=== PATIENT | female | born 1945 | race Caucasian/White ===

== ENCOUNTER 2017-02-26 23:43 | Emergency (ER) | payer MEDICARE, OTHER, MEDICAID ==
[2017-02-27] MEDS ORDERED: Ondansetron 4 MG/2 ML SDV IVPUSH ONE (00:40)
[2017-02-27] MEDS ORDERED: Sodium Chloride 0.9% 1,000 ML IV SCH (00:45)
[2017-02-27] MEDS ORDERED: Ondansetron 4 MG Tab.DIS PO ONE (02:39)
[2017-02-27 03:02] VITALS: BP 155/80
--- NOTE | 2017-03-04 10:51 | ER ---
DATE SEEN: 02/26/2017 The patient was seen at 2356 hours. CHIEF COMPLAINT: Abdominal pain with nausea and vomiting. HISTORY OF PRESENT ILLNESS: This pleasant 71-year-old woman comes in with her son because she had onset of nausea and vomiting this evening and it has been present since 2230 hours. She had eaten supper, had chips, salsa, and cereal. She still has mild cramping, nausea, and had associated diaphoresis. Denies chest pain, shortness of breath, cough, leg pain, arm pain, jaw pain, neck pain, lightheadedness, near syncope, syncope, palpitations, or fever. Her abdominal pain is 5/10 in intensity. 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 Had pneumonia in 2016. Had partial hysterectomy, a bunion surgery, cholecystectomy, and big toe surgery. She weighs approximately 200 pounds. MEDICATIONS: 1. Patanol for glaucoma. 2. Lisinopril for hypertension. 3. Nexium for GERD. 4. Citalopram for depression. ALLERGIES: Cefdinir, iodine, oral and IV dye contrast, ketorolac, and tromethamine. REVIEW OF SYSTEMS: Negative except for noted above. PHYSICAL EXAMINATION: VITAL SIGNS: Blood pressure 162/77, heart rate 80, respirations 16, oxygen saturation 100%, weight 90.71 kg, and BMI 31.3 kg/m2. GENERAL: Alert woman. She is missing multiple lower teeth, incisors and cuspids. Pleasant. HEENT: PERRLA intact without abnormality. Mucosa slightly decreased in moistness, has dry mouth. NECK: Supple. No bruits in the neck. No thyromegaly. LUNGS: Clear to auscultation without rales, rhonchi, or wheezes. HEART: S1, S2. There is no irregularity of rhythm. ABDOMEN: Soft, mild voluntary guarding. No rebound. No scars noted. No tenderness. No CVA percussion tenderness. EXTREMITIES: Lower extremities without edema. Deep tendon reflexes hypoactive, upper and lower extremities. Cranial nerves 2 through 12 intact. Oriented x3. Strength intact. PSYCHIATRIC: The patient is alert, interactive, and appropriate. LABORATORY FINDINGS: White count 9600, PMNs 80, lymphocytes 10, hemoglobin 15.6, hematocrit is 47. Complete metabolic panel is negative except for a slight reactive glucose elevation of 143. AST 123, ALT 92, troponin 0.01. ASSESSMENT: 1. Gastroenteritis, probably food, staphylococcal mediated. 2. Possible norovirus because the patient is working with daycare. Norovirus is the most common virus to cause gastroenteritis. 3. Low probability of rotavirus, as rotavirus is being vaccinated for in the younger population. 4. Other viruses, adenovirus and Campylobacter as the etiology. PLAN: The patient received 1000 mL of normal saline flush and Zofran. She feels much better. Her symptoms abated. The patient dismissed. Gradually progressively increase her diet as tolerated, and noted that she may have loose stools and discomfort for several days before it resolves. Two tablets of Zofran sent home with her to help deal with nausea and vomiting in the next 6 hours. /[id number] RYAN/STEPHEN PARKINSON
== END 2017-02-27 02:55 | disposition home or self-care (01) ==
LOC: FB.ED 23:43
DX: K52.9 Noninfective gastroenteritis and colitis, unspecified (principal); A04.5 Campylobacter enteritis; B34.0 Adenovirus infection, unspecified; K21.9 Gastro-esophageal reflux disease without esophagitis; Z87.01 Personal history of pneumonia (recurrent); Z88.8 Allergy status to other drugs, medicaments and biological substances; Z91.041 Radiographic dye allergy status
CPT/HCPCS: 36415; 80053; 84484; 85025; 93005; 96360; 96361; 99284; A9270; J2405; J7040; 99283

== ENCOUNTER 2019-11-17 11:37 | Emergency (ER) | payer MEDICARE, OTHER, MEDICAID ==
[2019-11-17 11:49] VITALS: BP 168/81; PULSE 77
[2019-11-17] MEDS ORDERED: Sodium Chloride 0.9% 10 ML Syringe FLUSH PRN (11:56)
[2019-11-17] MEDS ORDERED: Ondansetron 4 MG/2 ML SDV IVPUSH ONE (11:57)
[2019-11-17] MEDS ORDERED: Sodium Chloride 0.9% 1,000 ML IV SCH (12:00)
[2019-11-17] MEDS ORDERED: Meclizine 25 MG Tab PO ONE (12:12)
[2019-11-17] MEDS ORDERED: LORazepam 2 MG/ML SDV IVPUSH ONE (12:12)
--- NOTE | 2019-11-17 14:24 | EDM.PDOC ---
ED HPI GENERAL MEDICAL PROBLEM - General Chief Complaint: Gastrointestinal Problem Stated Complaint: NAUSEA,VOMITING Time Seen by Provider: 11/17/19 11:55 Source of Information: Reports: Patient History Limitations: Reports: No Limitations - History of Present Illness INITIAL COMMENTS - FREE TEXT/NARRATIVE: Patient presented to the ED because of dizziness which she described as spinning sensation followed by N/V. She also c/o fullness on the right ear. There is no recent cough or cold ,fever or chills. She the same episode in the past. 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 (see below) Other Treatments PRODUCTION BROACHER: zofran - Related Data Allergies Allergy/AdvReac Type Severity Reaction Status Date / Time cefdinir [From Omnicef] Allergy Nausea and Verified 02/26/17 23:55 Vomiting Iodinated Contrast Media Allergy Rash Verified 02/26/17 23:55 ketorolac tromethamine Allergy Bleeding Verified 02/26/17 23:55 [From Toradol] Home Meds: Home Meds Citalopram [Citalopram Hbr] 1.5 tab PO DAILY 03/14/13 [History] Esomeprazole [NexIUM] 40 mg PO DAILY 03/14/13 [History] Lisinopril 20 mg PO DAILY 03/14/13 [History] Olopatadine HCl [Patanol] 1 drop Q48H 03/14/13 [History] Meclizine [Antivert] 25 mg PO Q6H PRN #15 tab.chew 11/17/19 [Rx] Metoprolol Succinate [Toprol XL] 25 mg PO DAILY 11/17/19 [History] Ondansetron [Zofran ODT] 4 mg PO Q4H PRN #5 tab.dis 11/17/19 [Rx] Past Medical History HEENT History: Reports: Impaired Vision Cardiovascular History: Reports: Aneurysm, Other (See Below) Other Cardiovascular History: 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: Reports: , Other (See Below) Other RIGGER THIRD History: partial hysterectomy - Past Surgical History GI Surgical History: Reports: Appendectomy, Cholecystectomy Other Musculoskeletal Surgeries/Procedures:: big toe bunion surgery with screws Social & Family History - Family History Family Medical History: Noncontributory - Tobacco Use Smoking Status *Q: Never Smoker - Caffeine Use Caffeine Use: Reports: Coffee, Soda, Tea ED ROS ENT - Review of Systems Review Of Systems: See Below Constitutional: Reports: No Symptoms HEENT: Reports: No Symptoms Respiratory: Reports: No Symptoms Cardiovascular: Reports: No Symptoms Endocrine: Reports: No Symptoms GI/Abdominal: Reports: No Symptoms, Nausea, Vomiting : Reports: No Symptoms Musculoskeletal: Reports: No Symptoms Skin: Reports: No Symptoms Neurological: Reports: Dizziness Psychiatric: Reports: No Symptoms ED EXAM, ENT - Physical Exam Exam: See Below Exam Limited By: Intoxication General Appearance: Alert, No Apparent Distress Eye Exam: Bilateral Eye: PERRL Ears: Normal External Exam, Normal Canal Nose: Normal Inspection, Normal Mucousa, No Blood Mouth/Throat: Normal Inspection, Normal Gums Head: Atraumatic, Normocephalic Neck: Normal Inspection, Supple, Non-Tender Respiratory/Chest: No Respiratory Distress, Lungs Clear, Normal Breath Sounds Cardiovascular: Normal Peripheral Pulses, Regular Rate, Rhythm, No Edema, No Gallop GI/Abdominal: Normal Bowel Sounds, Soft, Non-Tender Back: Normal Inspection, Full Range of Motion Extremities: Normal Inspection, Normal Range of Motion Neurological: Alert, Oriented, CN II-XII Intact, Normal Cognition, Normal Gait Course - Vital Signs Text/Narrative:: Labs/EKG was reviewed with patient and verbalized full understanding NS 1L bonus Ativan 1 mg IV Meclizine 25 mg po x1 Last Recorded V/S: Last Vital Signs Temp 36.3 C 11/17/19 11:47 Pulse 77 11/17/19 11:47 Resp 20 11/17/19 11:47 BP 168/81 H 11/17/19 11:47 Pulse Ox 98 11/17/19 11:47 - Orders/Labs/Meds Orders: Active Orders 24 hr Category Date Time Status EKG Documentation Completion [RC] ASDIRECTED Care 11/17/19 11:57 Active Chest 1V Frontal [CR] Stat Exams 11/17/19 12:14 Taken Sodium Chloride 0.9% [Normal Saline] 1,000 ml Med 11/17/19 12:00 Active IV ASDIRECTED Sodium Chloride 0.9% [Saline Flush] Med 11/17/19 11:56 Active 10 ml FLUSH ASDIRECTED PRN Saline Lock Insert [OM.PC] Routine Oth 11/17/19 11:56 Ordered EKG 12 Lead [EK] Routine Ther 11/17/19 11:56 Ordered Medication Orders Sodium Chloride (Normal Saline) 1,000 mls @ 999 mls/hr IV ASDIRECTED JAKE Last Admin: 11/17/19 12:41 Dose: 999 mls/hr Sodium Chloride (Saline Flush) 10 ml FLUSH ASDIRECTED PRN PRN Reason: Keep Vein Open Last Admin: 11/17/19 13:30 Dose: 10 ml Labs: Laboratory Tests 11/17/19 11/17/19 11/17/19 Range/Units 12:10 12:10 12:10 WBC 8.3 (4.5-12.0) X10-3/uL RBC 5.17 (3.23-5.20) x10(6)uL Hgb 15.4 (11.5-15.5) g/dL Hct 45.6 (30.0-51.3) % MCV 88.1 (80-96) fL MCH 29.8 (27.7-33.6) pg MCHC 33.8 (32.2-35.4) g/dL RDW 14.0 (11.5-15.5) % Plt Count 212 (125-369) X10(3)uL MPV 8.0 (7.4-10.4) fL Neut % (Auto) 53.1 (46-82) % Lymph % (Auto) 31.9 (13-37) % [place] % (Auto) 6.4 (4-12) % Eos % (Auto) 8 H (1.0-5.0) % Baso % (Auto) 1 (0-2) % Neut # (Auto) 4.3 (1.6-8.3) # Lymph # (Auto) 2.7 (0.6-5.0) # [place] # (Auto) 0.5 (0.0-1.3) # Eos # (Auto) 0.7 (0.0-0.8) # Baso # (Auto) 0.1 (0.0-0.2) # Sodium 141 (135-145) mmol/L Potassium 3.6 (3.5-5.3) mmol/L Chloride 104 (100-110) mmol/L Carbon Dioxide 24 (21-32) mmol/L BUN 12 (7-18) mg/dL Creatinine 0.9 (0.55-1.02) mg/dL Est Cr Clr Drug Dosing TNP Estimated GFR (MDRD) > 60 (>60) BUN/Creatinine Ratio 13.3 (9-20) Glucose 124 H (80-116) mg/dL Calcium 9.5 (8.6-10.2) mg/dL Total Bilirubin 0.8 (0.1-1.3) mg/dL AST 39 H (5-25) IU/L ALT 85 H (12-36) U/L Alkaline Phosphatase 122 H (56-112) IU/L Troponin I 5.1 (4.0-60.3) pg/mL Total Protein 7.4 (6.0-8.0) g/dL Albumin 4.0 (3.2-4.6) g/dL Globulin 3.4 g/dL Albumin/Globulin Ratio 1.2 Urine Color (YELLOW) Urine Appearance (CLEAR) Urine pH (5.0-6.5) Ur Specific [place] (1.010-1.025) Urine Protein (NEGATIVE) mg/dL Urine Glucose (UA) (NORMAL) mg/dL Urine Ketones (NEGATIVE) mg/dL Urine Occult Blood (NEGATIVE) Urine Nitrite (NEGATIVE) Urine Bilirubin (NEGATIVE) Urine Urobilinogen (NEGATIVE) mg/dL Ur Leukocyte Esterase (NEGATIVE) Urine RBC (0-5) Urine WBC (0-5) Ur Squamous Epith Cells (NS,R,O) Urine Bacteria (NS) 11/16/ Range/Units 13:40 WBC (4.5-12.0) X10-3/uL RBC (3.23-5.20) x10(6)uL Hgb (11.5-15.5) g/dL Hct (30.0-51.3) % MCV (80-96) fL MCH (27.7-33.6) pg MCHC (32.2-35.4) g/dL RDW (11.5-15.5) % Plt Count (125-369) X10(3)uL MPV (7.4-10.4) fL Neut % (Auto) (46-82) % Lymph % (Auto) (13-37) % [place] % (Auto) (4-12) % Eos % (Auto) (1.0-5.0) % Baso % (Auto) (0-2) % Neut # (Auto) (1.6-8.3) # Lymph # (Auto) (0.6-5.0) # [place] # (Auto) (0.0-1.3) # Eos # (Auto) (0.0-0.8) # Baso # (Auto) (0.0-0.2) # Sodium (135-145) mmol/L Potassium (3.5-5.3) mmol/L Chloride (100-110) mmol/L Carbon Dioxide (21-32) mmol/L BUN (7-18) mg/dL Creatinine (0.55-1.02) mg/dL Est Cr Clr Drug Dosing Estimated GFR (MDRD) (>60) BUN/Creatinine Ratio (9-20) Glucose (80-116) mg/dL Calcium (8.6-10.2) mg/dL Total Bilirubin (0.1-1.3) mg/dL AST (5-25) IU/L ALT (12-36) U/L Alkaline Phosphatase (56-112) IU/L Troponin I (4.0-60.3) pg/mL Total Protein (6.0-8.0) g/dL Albumin (3.2-4.6) g/dL Globulin g/dL Albumin/Globulin Ratio Urine Color Yellow (YELLOW) Urine Appearance Clear (CLEAR) Urine pH 7.0 H (5.0-6.5) Ur Specific [place] 1.010 (1.010-1.025) Urine Protein Negative (NEGATIVE) mg/dL Urine Glucose (UA) Normal (NORMAL) mg/dL Urine Ketones Negative (NEGATIVE) mg/dL Urine Occult Blood Moderate H (NEGATIVE) Urine Nitrite Negative (NEGATIVE) Urine Bilirubin Negative (NEGATIVE) Urine Urobilinogen Normal (NEGATIVE) mg/dL Ur Leukocyte Esterase Negative (NEGATIVE) Urine RBC 0-5 (0-5) Urine WBC 0-5 (0-5) Ur Squamous Epith Cells Few H (NS,R,O) Urine Bacteria Few H (NS) Meds: Medications Generic Name Dose Route Start Last Admin Trade Name Freq PRN Reason Stop Dose Admin Sodium Chloride 1,000 mls @ 999 mls/hr 11/17/19 12:00 11/17/19 12:41 Normal Saline IV 999 mls/hr ASDIRECTED JAKE Administration Sodium Chloride 10 ml 11/17/19 11:56 11/17/19 13:30 Saline Flush FLUSH 10 ml ASDIRECTED PRN Administration Keep Vein Open Discontinued Medications Generic Name Dose Route Start Last Admin Trade Name Freq PRN Reason Stop Dose Admin Lorazepam 1 mg 11/17/19 12:12 11/17/19 12:34 Ativan IVPUSH 11/17/19 12:13 1 mg ONETIME ONE Administration Meclizine HCl 25 mg 11/17/19 12:12 11/17/19 13:29 Antivert PO 11/17/19 12:13 25 mg ONETIME ONE Administration Ondansetron HCl 4 mg 11/17/19 11:57 11/17/19 12:33 Zofran IVPUSH 11/17/19 11:58 4 mg ONETIME ONE Administration Departure - Departure Time of Disposition: 14:20 Disposition: Home, Self-Care 01 Condition: Good Clinical Impression: BPV (benign positional vertigo) - Discharge Information Prescriptions: Meclizine [Antivert] 25 mg PO Q6H PRN #15 tab.chew PRN Reason: vertigo Ondansetron [Zofran ODT] 4 mg PO Q4H PRN #5 tab.dis PRN Reason: Nausea Instructions: Benign Positional Vertigo Referrals: Ngozi Brooks NP [Primary Care Provider] - Forms: ED Department Discharge Additional Instructions: Please read discharge instructions on Benign Positional Vertigo Meclizine 25 mg every 6 hours for 24 hours then take it as needed Zofran 4 mg ODT 4 mg every 4 hours as needed for nausea Keep your appointment to see the ENT as scheduled Sepsis Event Note - Evaluation Sepsis Screening Result: No Definite Risk - Focused Exam Vital Signs: Vital Signs Temp Pulse Resp BP Pulse Ox 11/17/19 11:47 36.3 C 77 20 168/81 H 98 Date Exam was Performed: 11/17/19 Time Exam was Performed: 14:36 - My Orders Last 24 Hours: My Active Orders 11/17/19 11:56 Sodium Chloride 0.9% [Saline Flush] 10 ml FLUSH ASDIRECTED PRN Saline Lock Insert [OM.PC] Routine EKG 12 Lead [EK] Routine 11/17/19 11:57 EKG Documentation Completion [RC] ASDIRECTED 11/17/19 12:00 Sodium Chloride 0.9% [Normal Saline] 1,000 ml IV ASDIRECTED 11/17/19 12:14 Chest 1V Frontal [CR] Stat - Assessment/Plan Last 24 Hours: My Active Orders 11/17/19 11:56 Sodium Chloride 0.9% [Saline Flush] 10 ml FLUSH ASDIRECTED PRN Saline Lock Insert [OM.PC] Routine EKG 12 Lead [EK] Routine 11/17/19 11:57 EKG Documentation Completion [RC] ASDIRECTED 11/17/19 12:00 Sodium Chloride 0.9% [Normal Saline] 1,000 ml IV ASDIRECTED 11/17/19 12:14 Chest 1V Frontal [CR] Stat
== END 2019-11-17 14:30 | disposition home or self-care (01) ==
LOC: FB.ED 11:37
DX: H81.10 Benign paroxysmal vertigo, unspecified ear (principal); Z88.1 Allergy status to other antibiotic agents; Z91.041 Radiographic dye allergy status; Z88.6 Allergy status to analgesic agent; Z79.899 Other long term (current) drug therapy
CPT/HCPCS: 36415; 71045; 80053; 81001; 84484; 85025; 93005; 96361; 96374; 96375; 99284-25; A9270-GY; J2060; J2405; J7030

== ENCOUNTER 2020-01-08 19:26 | Observation (INO) | payer MEDICARE, OTHER, MEDICAID ==
[2020-01-08] MEDS ORDERED: Sodium Chloride 0.9% 1,000 ML IV ONE ×2 (19:39→19:43)
[2020-01-08] MEDS ORDERED: Ondansetron 4 MG/2 ML SDV IVPUSH ONE ×2 (19:43→21:26)
--- NOTE | 2020-01-08 20:15 | EDM.PDOC ---
ED HPI GENERAL MEDICAL PROBLEM - General Stated Complaint: VOMITTING Time Seen by Provider: 01/08/20 19:40 Source of Information: Reports: Patient, Family History Limitations: Reports: No Limitations - History of Present Illness INITIAL COMMENTS - FREE TEXT/NARRATIVE: c/o n/v pt ate a sandwich for lunch, felt fine was at her son's house this PM and picked up sticks outside for 2-3 hrs in warm weather, temp 78 now at 8p, temp max 82 tomorrow went to [facility], had not eaten supper 15 min into [employer] service developed n/v, no pain, no BENAVIDES, felt sweaty no sob, not hot, not cold, no cp threw up several times, son states she had difficulty remembering where she was or where she was going (to the ED) pt O x 3 here, knows she is in the hosp and the name of the hosp still considerable nausea, not tachy, inc'd BP, skin cool and clammy without beads sweat, initial temp 94 pt holding emesis bag, no emesis says she feels better if she is sitting still thinks there is wax in R ear, has trouble hearing says she has a thoracic aneurysm, denies other CV or pul problems, however no aneurysm on echo 4d ago echo 4d ago wnl, EF 55-60%, prox thoracic aorta 3.1 cm, valves wnl, chamber size wnl - Related Data Allergies Allergy/AdvReac Type Severity Reaction Status Date / Time cefdinir [From Omnicef] Allergy Nausea and Verified 01/04/20 09:55 Vomiting Iodinated Contrast Media Allergy Rash Verified 01/04/20 09:55 ketorolac tromethamine Allergy Bleeding Verified 01/04/20 09:55 [From Toradol] Home Meds: Home Meds Citalopram [Citalopram Hbr] 1.5 tab PO DAILY 03/14/13 [History] Esomeprazole [NexIUM] 40 mg PO DAILY 03/14/13 [History] Olopatadine HCl [Patanol] 1 drop EYEBOTH Q48H 03/14/13 [History] Meclizine [Antivert] 25 mg PO Q6H PRN #15 tab.chew 11/17/19 [Rx] Metoprolol Succinate [Toprol XL] 25 mg PO DAILY 11/17/19 [History] Ondansetron [Zofran ODT] 4 mg PO Q4H PRN #5 tab.dis 11/17/19 [Rx] Fluticasone Propionate [Flonase] 1 spray MOHINI ASDIRECTED 01/08/20 [History] Losartan [Cozaar] 100 mg PO DAILY 01/08/20 [History] Past Medical History HEENT History: Reports: Impaired Vision Cardiovascular History: Reports: Aneurysm, Other (See Below) Other Cardiovascular History: 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; diagnosed 1 to 1.5 years ago; ECHO annually to monitor; patient states [employer] History: Reports: , Other (See Below) Other [employer] History: partial hysterectomy - Past Surgical History GI Surgical History: Reports: Appendectomy, Cholecystectomy Other Musculoskeletal Surgeries/Procedures:: big toe bunion surgery with screws Social & Family History - Family History Family Medical History: Noncontributory - Caffeine Use Caffeine Use: Reports: Coffee, Soda, Tea ED ROS GENERAL - Review of Systems Review Of Systems: See Below Constitutional: Reports: No Symptoms HEENT: Reports: No Symptoms Respiratory: Reports: No Symptoms Cardiovascular: Reports: No Symptoms Endocrine: Reports: No Symptoms GI/Abdominal: Reports: No Symptoms, Nausea, Vomiting : Reports: No Symptoms Musculoskeletal: Reports: No Symptoms Skin: Reports: No Symptoms Neurological: Reports: No Symptoms Psychiatric: Reports: No Symptoms Hematologic/Lymphatic: Reports: No Symptoms Immunologic: Reports: No Symptoms ED EXAM, GENERAL - Physical Exam Exam: See Below Exam Limited By: No Limitations General Appearance: Alert, WD/WN, Mild Distress, Other (alert, conversant, answers complete sentences, appropriate) Ears: Normal External Exam, Normal Canal, Hearing Grossly Normal, Normal TMs, Other (no wax in eaither canal, TMs wnl, slight dry canal distal on R) Nose: Normal Inspection, Normal Mucosa, No Blood Throat/Mouth: Normal Inspection, Normal Lips, Normal Teeth, Normal Gums, Normal Oropharynx, Normal Voice, No Airway Compromise Head: Atraumatic, Normocephalic Neck: Normal Inspection, Supple, Non-Tender, Full Range of Motion. No: Lymphadenopathy (R), Lymphadenopathy (L) Respiratory/Chest: No Respiratory Distress, Lungs Clear, Normal Breath Sounds, No Accessory Muscle Use, Chest Non-Tender Cardiovascular: Normal Peripheral Pulses, Regular Rate, Rhythm, No Edema, No Gallop, No Murmur, No Rub GI/Abdominal: Normal Bowel Sounds, Soft, Non-Tender, No Distention, Other (NT, ND, nl BS x 4) Back Exam: Normal Inspection, Full Range of Motion, NT Extremities: Normal Inspection, Normal Range of Motion, Non-Tender, Normal Capillary Refill, No Pedal Edema Neurological: Alert, Oriented, CN II-XII Intact, Normal Cognition, No Motor/Sensory Deficits Psychiatric: Normal Affect, Normal Mood Skin Exam: Dry, Intact, Normal Color, No Rash, Cool, Other (LEs cool) Lymphatic: No Adenopathy Course - Vital Signs Last Recorded V/S: Last Vital Signs Temp 35.5 C L 01/08/20 19:26 Pulse 80 01/08/20 19:26 Resp 16 01/08/20 19:26 BP 154/83 H 01/08/20 22:39 Pulse Ox 100 01/08/20 19:26 - Orders/Labs/Meds Orders: Active Orders 24 hr Category Date Time Status Admission Status [Patient Status] [ADT] Routine ADT 01/08/20 23:56 Ordered EKG Documentation Completion [RC] ASDIRECTED Care 01/08/20 19:44 Active Urinary Catheter Assessment [RC] ASDIRECTED Care 01/08/20 20:40 Active Max Facial Sinus wo Cont [CT] Stat Exams 01/08/20 21:48 Taken CULTURE BLOOD [BC] Urgent Lab 01/08/20 20:00 Received CULTURE BLOOD [BC] Urgent Lab 01/08/20 20:08 Received Levofloxacin/Dextrose 5%-Water [Levaquin in D5W 500 MG/ Med 01/08/20 23:52 Ordered 100 ML] 500 mg Premix Bag 1 bag IV ONETIME Blood Culture x2 Reflex Set [OM.PC] Urgent Oth 01/08/20 19:43 Ordered EKG 12 Lead [EK] Routine Ther 01/08/20 19:43 Ordered Medication Orders Levofloxacin/Dextrose 500 mg/ (Premix) 100 mls @ 100 mls/hr IV ONETIME ONE Stop: 01/09/20 00:51 Labs: Laboratory Tests 01/08/20 01/08/20 01/08/20 Range/Units 20:00 20:00 20:00 WBC 13.8 H (4.5-12.0) X10-3/uL RBC 5.30 H (3.23-5.20) x10(6)uL Hgb 15.1 (11.5-15.5) g/dL Hct 47.0 (30.0-51.3) % MCV 88.7 (80-96) fL MCH 28.6 (27.7-33.6) pg MCHC 32.2 (32.2-35.4) g/dL RDW 12.9 (11.5-15.5) % Plt Count 223 (125-369) X10(3)uL MPV 8.5 (7.4-10.4) fL Neut % (Auto) 78.8 (46-82) % Lymph % (Auto) 16.0 (13-37) % Sully % (Auto) 5.2 (4-12) % Eos % (Auto) 0 L (1.0-5.0) % Baso % (Auto) 0 (0-2) % Neut # (Auto) 10.9 H (1.6-8.3) # Lymph # (Auto) 2.2 (0.6-5.0) # Sully # (Auto) 0.7 (0.0-1.3) # Eos # (Auto) 0.0 (0.0-0.8) # Baso # (Auto) 0.0 (0.0-0.2) # Sodium 142 (135-145) mmol/L Potassium 3.9 (3.5-5.3) mmol/L Chloride 103 (100-110) mmol/L Carbon Dioxide 24 (21-32) mmol/L BUN 20 H (7-18) mg/dL Creatinine 1.1 H (0.55-1.02) mg/dL Est Cr Clr Drug Dosing TNP Estimated GFR (MDRD) 49 L (>60) BUN/Creatinine Ratio 18.2 (9-20) Glucose 163 H (80-116) mg/dL Lactic Acid (0.4-2.0) mmol/L Calcium 9.3 (8.6-10.2) mg/dL Total Bilirubin 0.6 (0.1-1.3) mg/dL AST 33 H D (5-25) IU/L ALT 83 H (12-36) U/L Alkaline Phosphatase 100 (56-112) IU/L Troponin I 9.9 (4.0-60.3) pg/mL C-Reactive Protein < 0.2 L (0.5-0.9) mg/dL Total Protein 7.3 (6.0-8.0) g/dL Albumin 4.2 (3.2-4.6) g/dL Globulin 3.1 g/dL Albumin/Globulin Ratio 1.4 Urine Color (YELLOW) Urine Appearance (CLEAR) Urine pH (5.0-6.5) Ur Specific [place] (1.010-1.025) Urine Protein (NEGATIVE) mg/dL Urine Glucose (UA) (NORMAL) mg/dL Urine Ketones (NEGATIVE) mg/dL Urine Occult Blood (NEGATIVE) Urine Nitrite (NEGATIVE) Urine Bilirubin (NEGATIVE) Urine Urobilinogen (NEGATIVE) mg/dL Ur Leukocyte Esterase (NEGATIVE) Urine RBC (0-5) Urine WBC (0-5) Ur Squamous Epith Cells (NS,R,O) Amorphous Sediment Urine Bacteria (NS) Urine Mucus (NS) 01/08/20 01/08/20 01/08/20 Range/Units 20:00 20:40 22:10 WBC (4.5-12.0) X10-3/uL RBC (3.23-5.20) x10(6)uL Hgb (11.5-15.5) g/dL Hct (30.0-51.3) % MCV (80-96) fL MCH (27.7-33.6) pg MCHC (32.2-35.4) g/dL RDW (11.5-15.5) % Plt Count (125-369) X10(3)uL MPV (7.4-10.4) fL Neut % (Auto) (46-82) % Lymph % (Auto) (13-37) % Sully % (Auto) (4-12) % Eos % (Auto) (1.0-5.0) % Baso % (Auto) (0-2) % Neut # (Auto) (1.6-8.3) # Lymph # (Auto) (0.6-5.0) # Sully # (Auto) (0.0-1.3) # Eos # (Auto) (0.0-0.8) # Baso # (Auto) (0.0-0.2) # Sodium (135-145) mmol/L Potassium (3.5-5.3) mmol/L Chloride (100-110) mmol/L Carbon Dioxide (21-32) mmol/L BUN (7-18) mg/dL Creatinine (0.55-1.02) mg/dL Est Cr Clr Drug Dosing Estimated GFR (MDRD) (>60) BUN/Creatinine Ratio (9-20) Glucose (80-116) mg/dL Lactic Acid 3.8 H* (0.4-2.0) mmol/L Calcium (8.6-10.2) mg/dL Total Bilirubin (0.1-1.3) mg/dL AST (5-25) IU/L ALT (12-36) U/L Alkaline Phosphatase (56-112) IU/L Troponin I 11.8 (4.0-60.3) pg/mL C-Reactive Protein (0.5-0.9) mg/dL Total Protein (6.0-8.0) g/dL Albumin (3.2-4.6) g/dL Globulin g/dL Albumin/Globulin Ratio Urine Color Yellow (YELLOW) Urine Appearance Clear (CLEAR) Urine pH 7.0 H (5.0-6.5) Ur Specific [place] 1.010 (1.010-1.025) Urine Protein Negative (NEGATIVE) mg/dL Urine Glucose (UA) Normal (NORMAL) mg/dL Urine Ketones Negative (NEGATIVE) mg/dL Urine Occult Blood Moderate H (NEGATIVE) Urine Nitrite Negative (NEGATIVE) Urine Bilirubin Negative (NEGATIVE) Urine Urobilinogen Normal (NEGATIVE) mg/dL Ur Leukocyte Esterase Negative (NEGATIVE) Urine RBC 5-10 H (0-5) Urine WBC 0-5 (0-5) Ur Squamous Epith Cells Few H (NS,R,O) Amorphous Sediment Few Urine Bacteria Few H (NS) Urine Mucus Few H (NS) 01/08/20 Range/Units 22:10 WBC (4.5-12.0) X10-3/uL RBC (3.23-5.20) x10(6)uL Hgb (11.5-15.5) g/dL Hct (30.0-51.3) % MCV (80-96) fL MCH (27.7-33.6) pg MCHC (32.2-35.4) g/dL RDW (11.5-15.5) % Plt Count (125-369) X10(3)uL MPV (7.4-10.4) fL Neut % (Auto) (46-82) % Lymph % (Auto) (13-37) % Sully % (Auto) (4-12) % Eos % (Auto) (1.0-5.0) % Baso % (Auto) (0-2) % Neut # (Auto) (1.6-8.3) # Lymph # (Auto) (0.6-5.0) # Sully # (Auto) (0.0-1.3) # Eos # (Auto) (0.0-0.8) # Baso # (Auto) (0.0-0.2) # Sodium (135-145) mmol/L Potassium (3.5-5.3) mmol/L Chloride (100-110) mmol/L Carbon Dioxide (21-32) mmol/L BUN (7-18) mg/dL Creatinine (0.55-1.02) mg/dL Est Cr Clr Drug Dosing Estimated GFR (MDRD) (>60) BUN/Creatinine Ratio (9-20) Glucose (80-116) mg/dL Lactic Acid 2.8 H* (0.4-2.0) mmol/L Calcium (8.6-10.2) mg/dL Total Bilirubin (0.1-1.3) mg/dL AST (5-25) IU/L ALT (12-36) U/L Alkaline Phosphatase (56-112) IU/L Troponin I (4.0-60.3) pg/mL C-Reactive Protein (0.5-0.9) mg/dL Total Protein (6.0-8.0) g/dL Albumin (3.2-4.6) g/dL Globulin g/dL Albumin/Globulin Ratio Urine Color (YELLOW) Urine Appearance (CLEAR) Urine pH (5.0-6.5) Ur Specific [place] (1.010-1.025) Urine Protein (NEGATIVE) mg/dL Urine Glucose (UA) (NORMAL) mg/dL Urine Ketones (NEGATIVE) mg/dL Urine Occult Blood (NEGATIVE) Urine Nitrite (NEGATIVE) Urine Bilirubin (NEGATIVE) Urine Urobilinogen (NEGATIVE) mg/dL Ur Leukocyte Esterase (NEGATIVE) Urine RBC (0-5) Urine WBC (0-5) Ur Squamous Epith Cells (NS,R,O) Amorphous Sediment Urine Bacteria (NS) Urine Mucus (NS) Meds: Medications Generic Name Dose Route Start Last Admin Trade Name Valerie PRN Reason Stop Dose Admin Levofloxacin/Dextrose 500 mg/ 100 mls @ 100 mls/hr 01/08/20 23:52 Premix IV 01/09/20 00:51 ONETIME ONE Discontinued Medications Generic Name Dose Route Start Last Admin Trade Name Valerie PRN Reason Stop Dose Admin Aspirin 81 mg 01/08/20 22:05 01/08/20 22:39 Halfprin PO 01/08/20 22:06 81 mg ONETIME ONE Administration Citalopram Hydrobromide 20 mg 01/08/20 22:06 01/08/20 22:39 Celexa PO 01/08/20 22:07 20 mg ONETIME ONE Administration Sodium Chloride 1,000 mls @ 999 mls/hr 01/08/20 19:39 01/08/20 19:59 Normal Saline IV 01/08/20 20:39 999 mls/hr .BOLUS ONE Administration Sodium Chloride 1,000 mls @ 999 mls/hr 01/08/20 19:43 01/08/20 20:50 Normal Saline IV 01/08/20 20:43 999 mls/hr .BOLUS ONE Administration Levofloxacin 750 mg 01/08/20 23:40 01/08/20 23:52 Levaquin PO 01/08/20 23:41 Not Given ONETIME ONE Losartan Potassium 100 mg 01/08/20 22:04 01/08/20 22:39 Cozaar PO 01/08/20 22:05 100 mg NOW ONE Administration Losartan Potassium Confirm 01/08/20 22:11 01/08/20 22:42 Cozaar Administered 01/08/20 22:12 Not Given Dose 100 mg .ROUTE .STK-MED ONE Ondansetron HCl 4 mg 01/08/20 19:43 01/08/20 19:59 Zofran IVPUSH 01/08/20 19:44 4 mg ONETIME ONE Administration Ondansetron HCl 4 mg 01/08/20 21:26 01/08/20 21:54 Zofran IVPUSH 01/08/20 21:27 4 mg ONETIME ONE Administration - Re-Assessments/Exams Free Text/Narrative Re-Assessment/Exam: 01/08/20 20:40 b/cr 20/1.1 (was 12/0.9 from 2m ago) lactic acid 3.8 wbc 13.8 with segs 78.8% (was 13.8 from 2m ago) hgb 15.1 (was 15.4 from 2m ago) CRP > 0.2 labs c/w dehydration RN obtaining straight cath for u/a 01/08/20 23:59 pt has persistent nausea despite 2 doses of Zofran, did have hypothermia and sepsis cannot be excluded lactic acid remains elevated after 2 liters NS pt agrees to admit to obs bed, only son at bedside and agrees, will continue IVF and recheck labs in AM sinus CT shows moderate effusion in R max sinus pt does take Flonase and Zyrtec at home for allergies, has not been consistent in taking them, has apt with ENT in 3d at local clinic Departure - Departure Time of Disposition: 23:57 Disposition: Refer to Observation Condition: Fair Clinical Impression: Acute maxillary sinusitis, Nausea, Dehydration, Acute renal insufficiency, Elev ated lactic acid level, Leukocytosis, Hypothermia - Discharge Information *PRESCRIPTION DRUG MONITORING PROGRAM REVIEWED*: Not Applicable *COPY OF PRESCRIPTION DRUG MONITORING REPORT IN PATIENT TAWNYA: Not Applicable Referrals: PCP,None [Primary Care Provider] - Sepsis Event Note (ED) - Focused Exam Vital Signs: Vital Signs Temp Pulse Resp BP BP Pulse Ox 01/08/20 22:39 154/83 H 01/08/20 19:26 35.5 C L 80 16 190/88 H 100 - My Orders Last 24 Hours: My Active Orders 01/08/20 19:43 Blood Culture x2 Reflex Set [OM.PC] Urgent EKG 12 Lead [EK] Routine 01/08/20 19:44 EKG Documentation Completion [RC] ASDIRECTED 01/08/20 20:00 CULTURE BLOOD [BC] Urgent 01/08/20 20:08 CULTURE BLOOD [BC] Urgent 01/08/20 20:40 Urinary Catheter Assessment [RC] ASDIRECTED 01/08/20 21:48 Max Facial Sinus wo Cont [CT] Stat 01/08/20 23:52 Levofloxacin/Dextrose 5%-Water [Levaquin in D5W 500 MG/100 ML] 500 mg Premix Bag 1 bag IV ONETIME 01/08/20 23:56 Admission Status [Patient Status] [ADT] Routine - Assessment/Plan Last 24 Hours: My Active Orders 01/08/20 19:43 Blood Culture x2 Reflex Set [OM.PC] Urgent EKG 12 Lead [EK] Routine 01/08/20 19:44 EKG Documentation Completion [RC] ASDIRECTED 01/08/20 20:00 CULTURE BLOOD [BC] Urgent 01/08/20 20:08 CULTURE BLOOD [BC] Urgent 01/08/20 20:40 Urinary Catheter Assessment [RC] ASDIRECTED 01/08/20 21:48 Max Facial Sinus wo Cont [CT] Stat 01/08/20 23:52 Levofloxacin/Dextrose 5%-Water [Levaquin in D5W 500 MG/100 ML] 500 mg Premix Bag 1 bag IV ONETIME 01/08/20 23:56 Admission Status [Patient Status] [ADT] Routine
[2020-01-08] MEDS ORDERED: Losartan 100 MG Tab PO ONE (22:04)
[2020-01-08] MEDS ORDERED: Aspirin 81 MG Tab.EC PO ONE (22:05)
[2020-01-08] MEDS ORDERED: Citalopram 20 MG Tab PO ONE (22:06)
[2020-01-08] MEDS ORDERED: Losartan 50 MG Tab ONE (22:11)
[2020-01-08] MEDS: Levofloxacin 500 MG Tab PO ONE ×2 (23:43→23:52)
[2020-01-08] MEDS ORDERED: Levofloxacin/Dextrose 5%-Water 500 MG in Premix Bag 1 BAG IV ONE (23:52)
[2020-01-09] MEDS ORDERED: Magnesium Hydroxide 400 MG/5 ML Susp 30 ML Cup PO PRN (00:10)
[2020-01-09] MEDS ORDERED: Zolpidem 5 MG Tab PO PRN (00:10)
[2020-01-09] MEDS ORDERED: Enoxaparin 40 MG/0.4 ML Syringe SUBCUT SCH (00:15)
[2020-01-09] MEDS ORDERED: Dextrose 5%-0.225% NaCl w/KCl 1,000 ML IV SCH (00:15)
[2020-01-09] MEDS ORDERED: Sodium Chloride 0.9% 10 ML Syringe FLUSH PRN (01:05)
[2020-01-09] MEDS ORDERED: Enoxaparin 40 MG/0.4 ML Syringe ONE (01:44)
[2020-01-09] MEDS: Ondansetron 4 MG/2 ML SDV IVPUSH SCH ×3 (01:53→08:21)
[2020-01-09] MEDS: methylPREDNISolone Sodium Succinate 40 MG/1 ML SDV IVPUSH SCH ×2 (01:59→08:42)
[2020-01-09] MEDS ORDERED: NEXIUM 40 MG PO SCH (07:30)
[2020-01-09 08:38] VITALS: BP 142/79; PULSE 78
[2020-01-09] MEDS ORDERED: Metoprolol Succinate 25 MG Tab.ER**OWN MED PO SCH (09:00)
[2020-01-09] MEDS ORDERED: Fluticasone Propionate Nasal Spray 16 GM Bottle NASBOTH SCH (09:00)
[2020-01-09] MEDS ORDERED: Losartan 100 MG Tab**OWN MED PO SCH (09:00)
[2020-01-09] MEDS ORDERED: Cetirizine 10 MG Tab PO SCH (09:00)
--- NOTE | 2020-01-09 09:15 | PCM.HP.2 ---
H&P History of Present Illness - General Date of Service: 01/09/20 Admit Problem/Dx: Admission Diagnosis/Problem Admission Diagnosis/Problem Sinusitis Source of Information: Patient, Provider History Limitations: Reports: No Limitations - History of Present Illness Initial Comments - Free Text/Narative: Ginny is a 74-year-old female was admitted for observation. She came in with nausea,vomiting,disorientation, after staying outside in warm weather and not hydrating or eating enough. She had a mild headache, confusion but those have now improved steadily. She got 2 L of crystalloids in the ER and she feels ready to go home this morning. - Related Data Allergies/Adverse Reactions: Allergies Allergy/AdvReac Type Severity Reaction Status Date / Time cefdinir [From Omnicef] Allergy Nausea and Verified 01/04/20 09:55 Vomiting Iodinated Contrast Media Allergy Rash Verified 01/04/20 09:55 ketorolac tromethamine Allergy Bleeding Verified 01/04/20 09:55 [From Toradol] Home Medications: Home Meds Citalopram [Citalopram Hbr] 20 mg PO DAILY 03/14/13 [History] Esomeprazole [NexIUM] 40 mg PO DAILY 03/14/13 [History] Olopatadine HCl [Patanol] 1 drop EYEBOTH Q48H 03/14/13 [History] Meclizine [Antivert] 25 mg PO Q6H PRN #15 tab.chew 11/17/19 [Rx] Metoprolol Succinate [Toprol XL] 25 mg PO DAILY 11/17/19 [History] Ondansetron [Zofran ODT] 4 mg PO Q4H PRN #5 tab.dis 11/17/19 [Rx] Fluticasone Propionate [Flonase] 1 spray MOHINI ASDIRECTED 01/08/20 [History] Losartan [Cozaar] 100 mg PO DAILY 01/08/20 [History] Aspirin [Adult Low Dose Aspirin EC] 81 mg PO DAILY 01/09/20 [History] Cholecalciferol (Vitamin D3) [Vitamin D3] 5,000 unit PO ASDIRECTED 01/09/20 [History] Cyanocobalamin (Vitamin B-12) [Vitamin B-12] 1,000 mcg PO ASDIRECTED 01/09/20 [History] Multivitamin with Minerals [Multivitamins with Minerals] 1 each PO ASDIRECTED 01/09/20 [History] Pravastatin Sodium 10 mg PO DAILY 01/09/20 [History] Past Medical History HEENT History: Reports: Impaired Vision Cardiovascular History: Reports: Aneurysm, High Cholesterol, Hypertension, Other (See Below) Other Cardiovascular History: 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 Musculoskeletal History: Reports: Arthritis - Infectious Disease History Infectious Disease History: Reports: Chicken Pox, Rubella - Past Surgical History HEENT Surgical History: Reports: Cataract Surgery GI Surgical History: Reports: Appendectomy, Cholecystectomy Other Musculoskeletal Surgeries/Procedures:: Big toe bunion surgery with screws. Right hip replacement. Social & Family History - Family History Family Medical History: Noncontributory - Tobacco Use Smoking Status *Q: Never Smoker - Caffeine Use Caffeine Use: Reports: Coffee, Soda, Tea H&P Review of Systems - Review of Systems: Review Of Systems: Comprehensive ROS is negative, except as noted in HPI. Exam - Exam Exam: See Below - Vital Signs Vital Signs: Last Vital Signs Temp 98.8 F 01/09/20 08:00 Pulse 78 01/09/20 08:37 Resp 16 01/09/20 08:00 BP 142/79 H 01/09/20 08:37 Pulse Ox 96 01/09/20 08:00 Weight: 96.252 kg - Exam General: Alert, Oriented, 4 HEENT: PERRLA, Hearing Intact, Mucosa Moist & Bessie, Nares Patent, Normal Nasal Septum, Posterior Pharynx Clear, Conjunctiva Clear, EOMI, EACs Clear, TMs Clear Neck: Supple, Trachea Midline, 2 Lungs: Clear to Auscultation, Normal Respiratory Effort Cardiovascular: Regular Rate, Regular Rhythm GI/Abdominal Exam: Normal Bowel Sounds, Soft, Non-Tender, No Organomegaly, No Distention, No Abnormal Bruit, No Mass, Pelvis Stable (Female) Exam: Deferred Rectal (Female) Exam: Deferred Back Exam: Normal Inspection, Full Range of Motion, NT Extremities: Normal Inspection, Normal Range of Motion, Non-Tender, No Pedal Edema, Normal Capillary Refill Skin: Warm, Dry, Intact Neurological: Cranial Nerves Intact, Reflexes Equal Bilateral Neuro Extensive - Mental Status: Alert, Oriented x3, Normal Mood/Affect, Normal Cognition Neuro Extensive - Motor, Sensory, Reflexes: CN II-XII Intact, Normal Gait, Normal Reflexes Psychiatric: Alert, Normal Affect, Normal Mood - Patient Data Lab Results Last 24 hrs: Laboratory Results - last 24 hr 01/08/20 01/08/20 01/08/20 Range/Units 20:00 20:00 20:00 WBC 13.8 H (4.5-12.0) X10-3/uL RBC 5.30 H (3.23-5.20) x10(6)uL Hgb 15.1 (11.5-15.5) g/dL Hct 47.0 (30.0-51.3) % MCV 88.7 (80-96) fL MCH 28.6 (27.7-33.6) pg MCHC 32.2 (32.2-35.4) g/dL RDW 12.9 (11.5-15.5) % Plt Count 223 (125-369) X10(3)uL MPV 8.5 (7.4-10.4) fL Neut % (Auto) 78.8 (46-82) % Lymph % (Auto) 16.0 (13-37) % Sibley % (Auto) 5.2 (4-12) % Eos % (Auto) 0 L (1.0-5.0) % Baso % (Auto) 0 (0-2) % Neut # (Auto) 10.9 H (1.6-8.3) # Lymph # (Auto) 2.2 (0.6-5.0) # Sibley # (Auto) 0.7 (0.0-1.3) # Eos # (Auto) 0.0 (0.0-0.8) # Baso # (Auto) 0.0 (0.0-0.2) # Sodium 142 (135-145) mmol/L Potassium 3.9 (3.5-5.3) mmol/L Chloride 103 (100-110) mmol/L Carbon Dioxide 24 (21-32) mmol/L BUN 20 H (7-18) mg/dL Creatinine 1.1 H (0.55-1.02) mg/dL Est Cr Clr Drug Dosing TNP Estimated GFR (MDRD) 49 L (>60) BUN/Creatinine Ratio 18.2 (9-20) Glucose 163 H (80-116) mg/dL Lactic Acid (0.4-2.0) mmol/L Calcium 9.3 (8.6-10.2) mg/dL Total Bilirubin 0.6 (0.1-1.3) mg/dL AST 33 H D (5-25) IU/L ALT 83 H (12-36) U/L Alkaline Phosphatase 100 (56-112) IU/L Troponin I 9.9 (4.0-60.3) pg/mL C-Reactive Protein < 0.2 L (0.5-0.9) mg/dL Total Protein 7.3 (6.0-8.0) g/dL Albumin 4.2 (3.2-4.6) g/dL Globulin 3.1 g/dL Albumin/Globulin Ratio 1.4 Urine Color (YELLOW) Urine Appearance (CLEAR) Urine pH (5.0-6.5) Ur Specific Dudley (1.010-1.025) Urine Protein (NEGATIVE) mg/dL Urine Glucose (UA) (NORMAL) mg/dL Urine Ketones (NEGATIVE) mg/dL Urine Occult Blood (NEGATIVE) Urine Nitrite (NEGATIVE) Urine Bilirubin (NEGATIVE) Urine Urobilinogen (NEGATIVE) mg/dL Ur Leukocyte Esterase (NEGATIVE) Urine RBC (0-5) Urine WBC (0-5) Ur Squamous Epith Cells (NS,R,O) Amorphous Sediment Urine Bacteria (NS) Urine Mucus (NS) 01/08/20 01/08/20 01/08/20 Range/Units 20:00 20:40 22:10 WBC (4.5-12.0) X10-3/uL RBC (3.23-5.20) x10(6)uL Hgb (11.5-15.5) g/dL Hct (30.0-51.3) % MCV (80-96) fL MCH (27.7-33.6) pg MCHC (32.2-35.4) g/dL RDW (11.5-15.5) % Plt Count (125-369) X10(3)uL MPV (7.4-10.4) fL Neut % (Auto) (46-82) % Lymph % (Auto) (13-37) % Sibley % (Auto) (4-12) % Eos % (Auto) (1.0-5.0) % Baso % (Auto) (0-2) % Neut # (Auto) (1.6-8.3) # Lymph # (Auto) (0.6-5.0) # Sibley # (Auto) (0.0-1.3) # Eos # (Auto) (0.0-0.8) # Baso # (Auto) (0.0-0.2) # Sodium (135-145) mmol/L Potassium (3.5-5.3) mmol/L Chloride (100-110) mmol/L Carbon Dioxide (21-32) mmol/L BUN (7-18) mg/dL Creatinine (0.55-1.02) mg/dL Est Cr Clr Drug Dosing Estimated GFR (MDRD) (>60) BUN/Creatinine Ratio (9-20) Glucose (80-116) mg/dL Lactic Acid 3.8 H* (0.4-2.0) mmol/L Calcium (8.6-10.2) mg/dL Total Bilirubin (0.1-1.3) mg/dL AST (5-25) IU/L ALT (12-36) U/L Alkaline Phosphatase (56-112) IU/L Troponin I 11.8 (4.0-60.3) pg/mL C-Reactive Protein (0.5-0.9) mg/dL Total Protein (6.0-8.0) g/dL Albumin (3.2-4.6) g/dL Globulin g/dL Albumin/Globulin Ratio Urine Color Yellow (YELLOW) Urine Appearance Clear (CLEAR) Urine pH 7.0 H (5.0-6.5) Ur Specific Dudley 1.010 (1.010-1.025) Urine Protein Negative (NEGATIVE) mg/dL Urine Glucose (UA) Normal (NORMAL) mg/dL Urine Ketones Negative (NEGATIVE) mg/dL Urine Occult Blood Moderate H (NEGATIVE) Urine Nitrite Negative (NEGATIVE) Urine Bilirubin Negative (NEGATIVE) Urine Urobilinogen Normal (NEGATIVE) mg/dL Ur Leukocyte Esterase Negative (NEGATIVE) Urine RBC 5-10 H (0-5) Urine WBC 0-5 (0-5) Ur Squamous Epith Cells Few H (NS,R,O) Amorphous Sediment Few Urine Bacteria Few H (NS) Urine Mucus Few H (NS) 01/08/20 01/09/20 01/09/20 Range/Units 22:10 06:45 06:45 WBC 10.0 (4.5-12.0) X10-3/uL RBC 5.00 (3.23-5.20) x10(6)uL Hgb 14.1 (11.5-15.5) g/dL Hct 44.2 (30.0-51.3) % MCV 88.4 (80-96) fL MCH 28.2 (27.7-33.6) pg MCHC 31.9 L (32.2-35.4) g/dL RDW 13.0 (11.5-15.5) % Plt Count 216 (125-369) X10(3)uL MPV 8.2 (7.4-10.4) fL Neut % (Auto) 81.7 (46-82) % Lymph % (Auto) 15.6 (13-37) % Sibley % (Auto) 2.7 L (4-12) % Eos % (Auto) 0 L (1.0-5.0) % Baso % (Auto) 0 (0-2) % Neut # (Auto) 8.0 (1.6-8.3) # Lymph # (Auto) 1.6 (0.6-5.0) # Sibley # (Auto) 0.3 (0.0-1.3) # Eos # (Auto) 0.0 (0.0-0.8) # Baso # (Auto) 0.0 (0.0-0.2) # Sodium 141 (135-145) mmol/L Potassium 4.6 (3.5-5.3) mmol/L Chloride 106 (100-110) mmol/L Carbon Dioxide 26 (21-32) mmol/L BUN 15 (7-18) mg/dL Creatinine 1.0 (0.55-1.02) mg/dL Est Cr Clr Drug Dosing 48.89 Estimated GFR (MDRD) 54 L (>60) BUN/Creatinine Ratio 15.0 (9-20) Glucose 145 H (80-116) mg/dL Lactic Acid 2.8 H* (0.4-2.0) mmol/L Calcium 9.1 (8.6-10.2) mg/dL Total Bilirubin (0.1-1.3) mg/dL AST (5-25) IU/L ALT (12-36) U/L Alkaline Phosphatase (56-112) IU/L Troponin I (4.0-60.3) pg/mL C-Reactive Protein (0.5-0.9) mg/dL Total Protein (6.0-8.0) g/dL Albumin (3.2-4.6) g/dL Globulin g/dL Albumin/Globulin Ratio Urine Color (YELLOW) Urine Appearance (CLEAR) Urine pH (5.0-6.5) Ur Specific Dudley (1.010-1.025) Urine Protein (NEGATIVE) mg/dL Urine Glucose (UA) (NORMAL) mg/dL Urine Ketones (NEGATIVE) mg/dL Urine Occult Blood (NEGATIVE) Urine Nitrite (NEGATIVE) Urine Bilirubin (NEGATIVE) Urine Urobilinogen (NEGATIVE) mg/dL Ur Leukocyte Esterase (NEGATIVE) Urine RBC (0-5) Urine WBC (0-5) Ur Squamous Epith Cells (NS,R,O) Amorphous Sediment Urine Bacteria (NS) Urine Mucus (NS) 01/09/20 Range/Units 06:45 WBC (4.5-12.0) X10-3/uL RBC (3.23-5.20) x10(6)uL Hgb (11.5-15.5) g/dL Hct (30.0-51.3) % MCV (80-96) fL MCH (27.7-33.6) pg MCHC (32.2-35.4) g/dL RDW (11.5-15.5) % Plt Count (125-369) X10(3)uL MPV (7.4-10.4) fL Neut % (Auto) (46-82) % Lymph % (Auto) (13-37) % Sibley % (Auto) (4-12) % Eos % (Auto) (1.0-5.0) % Baso % (Auto) (0-2) % Neut # (Auto) (1.6-8.3) # Lymph # (Auto) (0.6-5.0) # Sibley # (Auto) (0.0-1.3) # Eos # (Auto) (0.0-0.8) # Baso # (Auto) (0.0-0.2) # Sodium (135-145) mmol/L Potassium (3.5-5.3) mmol/L Chloride (100-110) mmol/L Carbon Dioxide (21-32) mmol/L BUN (7-18) mg/dL Creatinine (0.55-1.02) mg/dL Est Cr Clr Drug Dosing Estimated GFR (MDRD) (>60) BUN/Creatinine Ratio (9-20) Glucose (80-116) mg/dL Lactic Acid 2.2 H* (0.4-2.0) mmol/L Calcium (8.6-10.2) mg/dL Total Bilirubin (0.1-1.3) mg/dL AST (5-25) IU/L ALT (12-36) U/L Alkaline Phosphatase (56-112) IU/L Troponin I (4.0-60.3) pg/mL C-Reactive Protein (0.5-0.9) mg/dL Total Protein (6.0-8.0) g/dL Albumin (3.2-4.6) g/dL Globulin g/dL Albumin/Globulin Ratio Urine Color (YELLOW) Urine Appearance (CLEAR) Urine pH (5.0-6.5) Ur Specific Dudley (1.010-1.025) Urine Protein (NEGATIVE) mg/dL Urine Glucose (UA) (NORMAL) mg/dL Urine Ketones (NEGATIVE) mg/dL Urine Occult Blood (NEGATIVE) Urine Nitrite (NEGATIVE) Urine Bilirubin (NEGATIVE) Urine Urobilinogen (NEGATIVE) mg/dL Ur Leukocyte Esterase (NEGATIVE) Urine RBC (0-5) Urine WBC (0-5) Ur Squamous Epith Cells (NS,R,O) Amorphous Sediment Urine Bacteria (NS) Urine Mucus (NS) Result Diagrams: 01/09/20 06:45 01/09/20 06:45 EKG INTERPRETATION EKG Date: 01/08/20 Rhythm: NSR Sepsis Event Note - Evaluation Sepsis Screening Result: No Definite Risk - Focused Exam Vital Signs: Vital Signs Temp Pulse Pulse Resp BP BP Pulse Ox 01/09/20 08:37 78 142/79 H 01/09/20 08:00 98.8 F 78 16 142/79 H 96 01/09/20 06:55 98.4 F 69 18 147/87 H 96 01/09/20 00:30 98.1 F 75 18 174/97 H 96 01/09/20 00:00 98.1 F 76 17 165/88 H 98 01/08/20 22:39 154/83 H Date Exam was Performed: 01/09/20 Time Exam was Performed: 09:11 - Problem List (1) Heat exhaustion SNOMED Code(s): 93921332 ICD Code: T67.5XXA - HEAT EXHAUSTION, UNSPECIFIED, INITIAL ENCOUNTER Status: Acute Current Visit: Yes Qualifiers: Encounter type: initial encounter Qualified Code(s): T67.5XXA - Heat exhaustion, unspecified, initial encounter (2) Elevated lactic acid level SNOMED Code(s): 2152660 ICD Code: R79.89 - OTHER SPECIFIED ABNORMAL FINDINGS OF BLOOD CHEMISTRY Status: Acute Current Visit: Yes (3) Nausea SNOMED Code(s): 197064313 ICD Code: R11.0 - NAUSEA Status: Acute Current Visit: Yes (4) BPV (benign positional vertigo) SNOMED Code(s): 148451961 ICD Code: H81.10 - BENIGN PAROXYSMAL VERTIGO, UNSPECIFIED EAR Status: Acute Current Visit: No Qualifiers: Laterality: unspecified laterality Qualified Code(s): H81.10 - Benign paroxysmal vertigo, unspecified ear Problem List Initiated/Reviewed/Updated: Yes Orders Last 24hrs: Active Orders 24 hr Category Date Time Status Admission Status [Patient Status] [ADT] Routine ADT 01/08/20 23:56 Active Oxygen Therapy [RC] .PRN Care 01/09/20 00:11 Active Up ad Lolita [RC] .PRN Care 01/09/20 00:10 Active 2 Gram Sodium Diet [DIET] Diet 01/09/20 Breakfast Active Max Facial Sinus wo Cont [CT] Stat Exams 01/08/20 21:48 Taken CULTURE BLOOD [BC] Urgent Lab 01/08/20 20:00 Received CULTURE BLOOD [BC] Urgent Lab 01/08/20 20:08 Received Cetirizine [ZyrTEC] Med 01/09/20 09:00 Pending 10 mg PO DAILY Citalopram [Celexa] Med 01/09/20 20:00 Active 20 mg PO DAILY Dextrose 5%-0.225% NaCl w/KCl [D5 1/4 NS with 20 mEq Med 01/09/20 00:15 Active KCl] 1,000 ml IV ASDIRECTED Enoxaparin [Lovenox] Med 01/09/20 00:15 Active 40 mg SUBCUT Q24H Fluticasone Propionate [Flonase] Med 01/09/20 09:00 Pending See Dose Instructions NASBOTH BID Losartan [Cozaar] Med 01/09/20 09:00 Active 100 mg PO DAILY Magnesium Hydroxide [Milk of Magnesia] Med 01/09/20 00:10 Active 30 ml PO Q12H PRN Metoprolol Succinate [Toprol XL] Med 01/09/20 09:00 Active 25 mg PO DAILY Ondansetron [Zofran] Med 01/09/20 00:15 Active 4 mg IVPUSH Q4H Patient's Own Medication [Ptom] Med 01/09/20 07:30 Active 1 each PO ACBREAKFAST Sodium Chloride 0.9% [Saline Flush] Med 01/09/20 01:05 Active 10 ml FLUSH ASDIRECTED PRN Zolpidem [Ambien] Med 01/09/20 00:10 Active 5 mg PO BEDTIME PRN methylPREDNISolone Sod Succ [Solu-MEDROL] Med 01/09/20 00:30 Active 80 mg IVPUSH Q8H Blood Culture x2 Reflex Set [OM.PC] Urgent Oth 01/08/20 19:43 Ordered Resuscitation Status Routine Resus Stat 01/09/20 00:10 Ordered EKG 12 Lead [EK] Routine Ther 01/08/20 19:43 Ordered Medication Orders Cetirizine HCl (Zyrtec) 10 mg PO DAILY [facility] Citalopram Hydrobromide (Celexa) 20 mg PO DAILY [facility] Enoxaparin Sodium (Lovenox) 40 mg SUBCUT Q24H [facility] Last Admin: 01/09/20 01:52 Dose: 40 mg Documented by: BRENLOR Fluticasone Propionate (Flonase) 0 gm NASBOTH BID [facility] Potassium Chloride/Dextrose/Sod Cl (D5 1/4 Ns With 20 Meq Kcl) 1,000 mls @ 75 mls/hr IV ASDIRECTED [facility] Last Admin: 01/09/20 02:10 Dose: 75 mls/hr Documented by: BRENLOR Losartan Potassium (Cozaar) 100 mg PO DAILY [facility] Last Admin: 01/09/20 08:53 Dose: Not Given Documented by: CHRIS Magnesium Hydroxide (Milk Of Magnesia) 30 ml PO Q12H PRN PRN Reason: Constipation Methylprednisolone Sodium Succinate (Solu-Medrol) 80 mg IVPUSH Q8H [facility] Last Admin: 01/09/20 08:42 Dose: 80 mg Documented by: Admin: 01/09/20 01:59 Dose: 80 mg Documented by: ROBERTO Metoprolol Succinate (Toprol Xl) 25 mg PO DAILY [facility] Last Admin: 01/09/20 08:37 Dose: 25 mg Documented by: CHRIS Ondansetron HCl (Zofran) 4 mg IVPUSH Q4H [facility] Last Admin: 01/09/20 08:21 Dose: Not Given Documented by: Admin: 01/09/20 06:41 Dose: Not Given Documented by: Admin: 01/09/20 01:53 Dose: 4 mg Documented by: ROBERTO Patient's Own MedicationNexium 40 Mg 1 each PO ACBREAKFAST [facility] Last Admin: 01/09/20 06:53 Dose: 1 each Documented by: ROBERTO Sodium Chloride (Saline Flush) 10 ml FLUSH ASDIRECTED PRN PRN Reason: Keep Vein Open Zolpidem Tartrate (Ambien) 5 mg PO BEDTIME PRN PRN Reason: Sleep Assessment/Plan Comment:: Patient has markedly improved this morning. Will DC home on no Meds,follow up PRN
[2020-01-09] MEDS ORDERED: Citalopram 20 MG Tab**OWN MED PO SCH (20:00)
== END 2020-01-09 09:45 | disposition home or self-care (01) ==
LOC: FB.ED 19:26 → FB.MS 23:59
PROVIDERS: ADMIT Emergency Medicine; ATTEND Family Medicine
DX: T67.5XXA Heat exhaustion, unspecified, initial encounter (principal); T68.XXXA Hypothermia, initial encounter; H81.10 Benign paroxysmal vertigo, unspecified ear; J01.00 Acute maxillary sinusitis, unspecified; E86.0 Dehydration; N17.9 Acute kidney failure, unspecified; E78.00 Pure hypercholesterolemia, unspecified; I10 Essential (primary) hypertension; K21.9 Gastro-esophageal reflux disease without esophagitis; R79.89 Other specified abnormal findings of blood chemistry; D72.829 Elevated white blood cell count, unspecified; Z88.1 Allergy status to other antibiotic agents; Z79.82 Long term (current) use of aspirin; Z91.041 Radiographic dye allergy status; Z88.6 Allergy status to analgesic agent; Z79.899 Other long term (current) drug therapy
CPT/HCPCS: 36415; 70486; 80048; 80053; 81001; 83605; 84484; 85025; 86140; 87040; 93005; 96361; 96365; 96375; 96376; 99285; A9270; J1650; J1956; J2405; J2920; J3480; J7030; 96366; 96372; 99217; G0378

== ENCOUNTER 2021-12-30 12:53 | Emergency (ER) | payer MEDICARE, OTHER, MEDICAID ==
[2021-12-30] MEDS ORDERED: Sodium Chloride 0.9% 10 ML Syringe FLUSH PRN (12:59)
[2021-12-30] MEDS: Ondansetron 4 MG/2 ML SDV IVPUSH STA (13:30)
[2021-12-30] MEDS: Sodium Chloride 0.9% 1,000 ML IV SCH (13:30)
[2021-12-30 13:46] LABS: ESTIMATED GFR 58 mL/min (>60)
[2021-12-30] MEDS ORDERED: Prochlorperazine 10 MG in Sodium Chloride 0.9% 50 ML IV ONE (13:55)
[2021-12-30] MEDS: Prochlorperazine 10 MG/2 ML SDV IVPUSH STA (14:01)
[2021-12-30] MEDS: Meclizine 25 MG Tab PO ONE (14:01)
[2021-12-30] MEDS: Prochlorperazine 10 MG/2 ML SDV ONE (14:01)
[2021-12-30 15:11] VITALS: BP 148/74; PULSE 65
== END 2021-12-30 15:15 | disposition home or self-care (01) ==
LOC: FB.ED 12:53
DX: K52.9 Noninfective gastroenteritis and colitis, unspecified (principal); I10 Essential (primary) hypertension; K21.9 Gastro-esophageal reflux disease without esophagitis; M19.90 Unspecified osteoarthritis, unspecified site; Z79.82 Long term (current) use of aspirin; Z20.822 Contact with and (suspected) exposure to COVID-19; Z79.899 Other long term (current) drug therapy; Z88.8 Allergy status to other drugs, medicaments and biological substances; Z88.6 Allergy status to analgesic agent
CPT/HCPCS: 36415; 80048; 85025; 96361; 96374; 96375; 99284; A9270; J0780; J2405; J7030; U0002

== ENCOUNTER 2022-01-08 07:26 | Observation (INO) | payer MEDICARE, OTHER, MEDICAID ==
[2022-01-08] MEDS ORDERED: Meclizine 25 MG Tab PO STA (07:41)
[2022-01-08] MEDS ORDERED: LORazepam 2 MG/ML SDV IVPUSH STA (07:41)
[2022-01-08] MEDS ORDERED: Pantoprazole 40 MG Vial IVPUSH STA (07:41)
[2022-01-08] MEDS ORDERED: Ondansetron 4 MG/2 ML SDV IVPUSH STA (07:41)
[2022-01-08] MEDS ORDERED: Sodium Chloride 0.9% 10 ML Syringe FLUSH PRN (07:41)
[2022-01-08] MEDS ORDERED: Sodium Chloride 0.9% 1,000 ML IV SCH (08:15)
[2022-01-08 08:29] LABS: ESTIMATED GFR 58 mL/min (>60)
[2022-01-08] MEDS ORDERED: Ondansetron 4 MG Tab.DIS PO PRN (09:43)
[2022-01-08] MEDS ORDERED: Enoxaparin 40 MG/0.4 ML Syringe SUBCUT SCH (09:45)
[2022-01-08] MEDS ORDERED: Non-Formulary Medication 1 Each (Metoprolol Succinate [Toprol Xl] 25 MG Tab.Er) PO SCH (09:45)
[2022-01-08] MEDS ORDERED: CITALOPRAM 10 MG PO SCH (09:45)
[2022-01-08] MEDS ORDERED: Pantoprazole 40 MG Vial IVPUSH SCH (10:00)
[2022-01-08] MEDS: Meclizine 25 MG Tab PO SCH ×2 (14:01→20:20)
[2022-01-08] MEDS ORDERED: Potassium Chloride 20 MEQ Tab.ER PO ONE (17:41)
[2022-01-08] MEDS ORDERED: Losartan 100 MG Tab *PTOM PO SCH (18:00)
[2022-01-08] MEDS ORDERED: amLODIPine 5 MG Tab *PTOM PO SCH (18:00)
[2022-01-08] MEDS: Pantoprazole 40 MG Vial IVPUSH SCH (20:42)
[2022-01-08] MEDS ORDERED: PRAVASTATIN SODIUM 10 MG PO SCH (21:00)
[2022-01-09] MEDS: Meclizine 25 MG Tab PO SCH ×2 (01:13→08:15)
[2022-01-09 07:05] LABS: ESTIMATED GFR 76 mL/min (>60)
[2022-01-09 07:51] VITALS: PULSE 64
[2022-01-09] MEDS: Pantoprazole 40 MG Vial IVPUSH SCH (08:10)
[2022-01-09 08:17] VITALS: BP 134/68
[2022-01-09] MEDS ORDERED: Citalopram 20 MG Tab *PTOM PO SCH (09:00)
== END 2022-01-09 08:50 | disposition home or self-care (01) ==
LOC: FB.ED 07:26 → FB.MS 09:00
PROVIDERS: ADMIT Emergency Medicine; ATTEND Student in an Organized Health Care Education/Training Program
DX: K52.9 Noninfective gastroenteritis and colitis, unspecified (principal); K21.9 Gastro-esophageal reflux disease without esophagitis; E11.22 Type 2 diabetes mellitus with diabetic chronic kidney disease; E66.9 Obesity, unspecified; I12.9 Hypertensive chronic kidney disease with stage 1 through stage 4 chronic kidney disease, or unspecified chronic kidney disease; N18.31 Chronic kidney disease, stage 3a; E86.0 Dehydration; E87.6 Hypokalemia; E78.00 Pure hypercholesterolemia, unspecified; H81.10 Benign paroxysmal vertigo, unspecified ear; Z98.890 Other specified postprocedural states; Z90.49 Acquired absence of other specified parts of digestive tract; Z88.8 Allergy status to other drugs, medicaments and biological substances; Z79.899 Other long term (current) drug therapy; Z68.34 Body mass index [BMI] 34.0-34.9, adult
CPT/HCPCS: 36415; 74176; 80053; 81001; 82150; 83690; 83735; 84484; 85025; 93005; 96361; 96374; 96375; 96376; 99285-25; A9270-GY; C9113; G0378; J2060; J2405; J3490; J7030

== ENCOUNTER 2022-07-15 05:08 | Emergency (ER) | payer MEDICARE, OTHER, MEDICAID ==
[2022-07-15] MEDS ORDERED: Metoprolol Succinate 25 MG Tab.ER PO ONE (05:48)
[2022-07-15] MEDS ORDERED: ClonazePAM 0.5 MG Tab PO ONE (05:50)
[2022-07-15] MEDS ORDERED: Metoprolol Tartrate 25 MG Tab PO ONE (05:54)
[2022-07-15] MEDS ORDERED: cloNIDine 0.1 MG Tab PO ONE (06:27)
[2022-07-15 07:34] VITALS: BP 169/99; PULSE 66
== END 2022-07-15 07:25 | disposition home or self-care (01) ==
LOC: FB.ED 05:08
DX: R04.0 Epistaxis (principal); I16.0 Hypertensive urgency; F41.9 Anxiety disorder, unspecified; E78.00 Pure hypercholesterolemia, unspecified; K21.9 Gastro-esophageal reflux disease without esophagitis; Z91.041 Radiographic dye allergy status; Z88.1 Allergy status to other antibiotic agents; Z79.899 Other long term (current) drug therapy; Z90.49 Acquired absence of other specified parts of digestive tract; Z88.5 Allergy status to narcotic agent
CPT/HCPCS: 30903; 99283; A9270-GY

== ENCOUNTER 2023-07-03 23:07 | Emergency (ER) | payer MEDICARE, OTHER ==
[2023-07-03] MEDS ORDERED: Potassium Chloride 10 MEQ Tab.ER PO ONE (23:08)
[2023-07-03 23:51] VITALS: PULSE 62
[2023-07-04] MEDS ORDERED: Potassium Chloride 20 MEQ Tab.ER PO ONE (00:01)
[2023-07-04 00:23] VITALS: BP 126/70
== END 2023-07-04 00:20 | disposition home or self-care (01) ==
LOC: FB.ED 23:07
DX: E87.6 Hypokalemia (principal); I10 Essential (primary) hypertension; E78.00 Pure hypercholesterolemia, unspecified; K21.9 Gastro-esophageal reflux disease without esophagitis; Z91.041 Radiographic dye allergy status; Z88.1 Allergy status to other antibiotic agents; Z88.6 Allergy status to analgesic agent; Z90.49 Acquired absence of other specified parts of digestive tract; Z90.710 Acquired absence of both cervix and uterus; Z86.16 Personal history of COVID-19; Z79.899 Other long term (current) drug therapy
CPT/HCPCS: 99284; A9270